=== PATIENT | male | born 1965 | race Hispanic/Latino ===

== ENCOUNTER 2018-09-15 15:02 | Emergency (ER) | payer SELFPAY | END 2018-09-15 15:23 | disposition home or self-care (01) | LOC: EDH 15:02 | DX: B35.4 Tinea corporis (principal); E78.5 Hyperlipidemia, unspecified; I10 Essential (primary) hypertension; E11.9 Type 2 diabetes mellitus without complications; Z87.891 Personal history of nicotine dependence | CPT/HCPCS: 99281 ==